=== PATIENT | female | born 1980 | race Caucasian/White ===

== ENCOUNTER → 2017-07-24 15:02 | Outpatient (CLI) | payer MEDICAID, SELFPAY ==
--- NOTE | 2017-07-24 15:22 | XR_ITS ---
XR foot LT min 3V HISTORY: Clubfoot, pain the pain, prior surgery ORDERING PHYSICIAN: Zully Roque DPM PATIENT AGE: 37 years COMPARISON: None FINDINGS: Weightbearing views are performed. There is mild metatarsus varus with mild osteoarthritic change of the first metatarsophalangeal joint. There appears to be fusion of the first interphalangeal joint. There is mild flexion of the second through fifth toes as well.. No fracture or dislocation. No lytic or blastic change. IMPRESSION: Metatarsus varus with flexion of the second through fifth toes and apparent fusion of the first interphalangeal joint
--- NOTE | 2017-07-24 15:22 | XR_ITS ---
XR RIGHT ankle min 3V HISTORY: Clubfoot ORDERING PHYSICIAN: Zully Roque DPM PATIENT AGE: 37 years COMPARISON: None FINDINGS: Weightbearing views performed No fracture or dislocation. No lytic or blastic change. There is normal mineralization.. The joint spaces are well-preserved. No significant degenerative/arthritic changes. No erosive changes evident. IMPRESSION: Negative right ankle, no acute finding
--- NOTE | 2017-07-24 15:22 | XR_ITS ---
XR ankle LT min 3V HISTORY: Clubfoot, prior surgery ORDERING PHYSICIAN: Zully Roque DPM PATIENT AGE: 37 years COMPARISON: None FINDINGS: No fracture or dislocation. No lytic or blastic change. There is normal mineralization.. The joint spaces are well-preserved. No significant degenerative/arthritic changes. No erosive changes evident. IMPRESSION: Negative ankle, no acute finding
--- NOTE | 2017-07-24 15:22 | XR_ITS ---
XR LT foot min 3V HISTORY: Clubfoot ORDERING PHYSICIAN: Zully Roque DPM PATIENT AGE: 37 years COMPARISON: None FINDINGS: Weightbearing views are performed. There is metatarsus varus with flexion deformity of digits 2 through 5. Hypertrophic changes are present at the talonavicular joint and at the calcaneal cuboid joint with bony bridging along the dorsal aspect of the calcaneal cuboid joint. Osteophyte is present also at the first metatarsal tarsal joint. There is pes cavus. No fracture or dislocation. No lytic or blastic change. IMPRESSION: Metatarsus varus with pes cavus and flexion deformity of digits 2 through 5
== END ==
PROVIDERS: PCP Emergency Medicine; Visit Provider Podiatrist
DX: Q66.7 Congenital pes cavus
CPT/HCPCS: 73610; 73630

== ENCOUNTER → 2017-08-25 13:48 | Outpatient (POV) | payer MEDICAID, SELFPAY | PROVIDERS: Family Provider Emergency Medicine; PCP Emergency Medicine; Visit Provider Specialist | DX: M79.671 Pain in right foot (principal); M79.672 Pain in left foot; M21.40 Flat foot [pes planus] (acquired), unspecified foot | CPT/HCPCS: 95886; 95909 ==

== ENCOUNTER → 2017-09-12 10:58 | Outpatient (POV) | payer MEDICAID, SELFPAY | PROVIDERS: Family Provider Emergency Medicine; PCP Emergency Medicine; Visit Provider Podiatrist | DX: Z00.00 Encounter for general adult medical examination without abnormal findings (principal) ==

== ENCOUNTER → 2017-10-10 10:17 | Outpatient (POV) | payer MEDICAID, SELFPAY | PROVIDERS: Family Provider Emergency Medicine; PCP Emergency Medicine; Visit Provider Podiatrist | DX: Z00.00 Encounter for general adult medical examination without abnormal findings (principal) ==

== ENCOUNTER → 2017-10-31 11:34 | Outpatient (POV) | payer MEDICAID, SELFPAY | PROVIDERS: Visit Provider Podiatrist | DX: Z00.00 Encounter for general adult medical examination without abnormal findings (principal) ==

== ENCOUNTER → 2018-02-06 11:57 | Outpatient (REF) | payer MEDICAID, SELFPAY | LOC: LAB 11:57 | PROVIDERS: Visit Provider Nurse Practitioner Family | DX: R30.0 Dysuria (principal) | CPT/HCPCS: 87086 ==

== ENCOUNTER → 2019-08-18 13:59 | Outpatient (CLI) | payer OTHER, SELFPAY ==
--- NOTE | 2019-08-18 14:00 | US_ITS ---
PROCEDURE: US THYROID CLINICAL INDICATION: enlarged Enlarged thyroid gland, difficulty swallowing COMPARISON: No exams were available for comparison FINDINGS: Right lobe: 3.7 x 1.3 x 1.6 cm with homogeneous echogenicity. Left lobe: 3 x 1.0 x 1.3 cm with homogeneous echogenicity Isthmus: Unremarkable Additional findings: No nodules apparent IMPRESSION: Unremarkable thyroid ultrasound Dictated by: Josue Gonzalez MD 08/18/2019 16:43 Electronically signed by Josue Gonzalez MD in [place] 08/18/2019 16:43
== END ==
PROVIDERS: PCP Emergency Medicine; Visit Provider Nurse Practitioner Family
DX: R13.10 Dysphagia, unspecified (principal)
CPT/HCPCS: 76536

== ENCOUNTER → 2019-08-23 11:04 | Outpatient (CLI) | payer OTHER, SELFPAY ==
[2019-08-23 11:31] LABS: Basophils % 0.7 % (0.1-2.0); Eosinophils # 0.1 K/mm3 (0.0-0.4); Eosinophils % 1.5 % (0.1-12.0); Hemoglobin 9.9 g/dL (12.2-16.2); Lymphocytes # 0.9 K/mm3 (0.7-4.5); Lymphocytes % 16.2 % (10-50); Mean Corpuscular HGB Conc 29.9 g/dL (31.8-35.4); Mean Corpuscular Hemoglobin 22.5 pg (27.0-31.2); Mean Corpuscular Volume 75.1 fl (81-99); Monocytes # 0.2 K/mm3 (0.1-1.0); Monocytes % 4.2 % (1.7-9.3); Neutrophils # 4.5 K/mm3 (1.8-7.8); Neutrophils % 77.4 % (37.0-80.0); Platelet Count 251 K/mm3 (142-424); Red Cell Distribution Width 14.8 % (11.5-17.5); White Blood Count 5.8 K/mm3 (4.8-10.8)
[2019-08-23 12:46] LABS: Alanine Aminotransferase 17 U/L (12-78); Albumin Level 3.5 gm/dL (3.4-5.0); Albumin/Globulin Ratio 1.3 (1.1-1.8); Alkaline Phosphatase 67 U/L (46-116); Anion Gap 14.7 mEq/L (5-15); Aspartate Amino Transferase 15 U/L (15-37); Bilirubin,Total 0.3 mg/dL (0.2-1.0); Blood Urea Nitrogen 11 mg/dL (7-18); Calcium 8.4 mg/dL (8.5-10.1); Carbon Dioxide 24 mmol/L (21.0-32.0); Chloride 107 mmol/L (98-107); Chol/HDL Ratio 3.5 (1-3.5); Cholesterol 142 mg/dL (140-200); Creatinine,Serum 0.61 mg/dL (0.55-1.02); Estimated Glomerular Filt Rate 109 ml/min (>60); GFR (African American) 131 ML/MIN (>60); Globulin 2.8 gm/dl (1.3-3.2); Glucose 89 mg/dL (74-106); HDL Cholesterol 41 mg/dL (29-89); LDL Cholesterol 72 mg/dL (0-130); Potassium 3.7 mmoL/L (3.5-5.1); Sodium 142 mmol/L (136-145); T4 (Thyroxine) 7.6 ug/dl (4.7-13.3); Total Protein,Serum 6.3 gm/dL (6.4-8.2); Triglycerides 147 mg/dL (30-200); VLDL Cholesterol 29 mg/dL (0-40)
[2019-08-24 05:34] LABS: Vitamin D 25 Hydroxy 23.8 ng/mL (30.0-100.0)
== END ==
PROVIDERS: Visit Provider Nurse Practitioner Family
DX: R59.9 Enlarged lymph nodes, unspecified (principal); R53.83 Other fatigue; E66.9 Obesity, unspecified; E55.9 Vitamin D deficiency, unspecified
CPT/HCPCS: 36415; 80053; 80061; 82652; 84436; 84443; 85025

== ENCOUNTER → 2019-08-30 12:45 | Outpatient (CLI) | payer OTHER, SELFPAY ==
[2019-08-30 12:47] LABS: MANUAL DIFFERENTIAL MANUAL DIFFERENTIAL (MANUAL DIFF)
[2019-08-30 13:04] LABS: Basophils # 0.1 K/mm3 (0-0.2); Basophils % 0.7 % (0.1-2.0); Eosinophils # 0.1 K/mm3 (0.0-0.4); Eosinophils % 1.7 % (0.1-12.0); Hematocrit 33.6 % (37.0-47.0); Hemoglobin 10.4 g/dL (12.2-16.2); Lymphocytes # 1.4 K/mm3 (0.7-4.5); Lymphocytes % 19.5 % (10-50); Mean Corpuscular HGB Conc 30.9 g/dL (31.8-35.4); Mean Corpuscular Hemoglobin 22.7 pg (27.0-31.2); Mean Corpuscular Volume 73.3 fl (81-99); Monocytes # 0.3 K/mm3 (0.1-1.0); Monocytes % 3.4 % (1.7-9.3); Neutrophils # 5.4 K/mm3 (1.8-7.8); Neutrophils % 74.6 % (37.0-80.0); Platelet Count 290 K/mm3 (142-424); Red Blood Count 4.58 M/mm3 (4.20-5.40); Red Cell Distribution Width 14.6 % (11.5-17.5); White Blood Count 7.2 K/mm3 (4.8-10.8)
[2019-08-30 19:31] LABS: Eosinophils % 2 % (0-3); Lymphocytes % 17 % (10-50); Monocytes % 4 % (2-9); Neutrophils % 77 % (42-76); Total Cells Counted 100
[2019-08-30 19:32] LABS: Anisocytosis 1+; Hypochromasia 1+; Microcytosis 1+
[2019-08-30 19:33] LABS: Platelet Estimate Slight Increase
== END ==
PROVIDERS: Visit Provider Nurse Practitioner Family
DX: D64.9 Anemia, unspecified (principal)
CPT/HCPCS: 36415; 85007; 85014; 85018; 85048; 85049

== ENCOUNTER → 2019-09-23 11:16 | Outpatient (CLI) | payer OTHER, SELFPAY ==
[2019-09-23 11:54] LABS: Basophils # 0.1 K/mm3 (0-0.2); Basophils % 0.7 % (0.1-2.0); Eosinophils # 0.2 K/mm3 (0.0-0.4); Eosinophils % 2.6 % (0.1-12.0); Hematocrit 33.5 % (37.0-47.0); Hemoglobin 10.2 g/dL (12.2-16.2); Lymphocytes # 1.5 K/mm3 (0.7-4.5); Lymphocytes % 19.7 % (10-50); Mean Corpuscular HGB Conc 30.4 g/dL (31.8-35.4); Mean Corpuscular Volume 72.3 fl (81-99); Mean Platelet Volume 8.2 fl (7.4-10.4); Monocytes # 0.3 K/mm3 (0.1-1.0); Monocytes % 4.1 % (1.7-9.3); Neutrophils # 5.5 K/mm3 (1.8-7.8); Neutrophils % 72.8 % (37.0-80.0); Platelet Count 231 K/mm3 (142-424); Red Blood Count 4.63 M/mm3 (4.20-5.40); Red Cell Distribution Width 15.5 % (11.5-17.5); White Blood Count 7.5 K/mm3 (4.8-10.8)
[2019-09-23 15:40] LABS: Ferritin 5.34 ng/ml (6.24-137)
[2019-09-24 04:35] LABS: Iron 23 ug/dL (27-159); UIBC 366 ug/dL (131-425)
[2019-09-24 10:32] LABS: Haptoglobin 215 mg/dL (33-278); Iron Saturation 6 % (15-55)
== END ==
PROVIDERS: Visit Provider Internal Medicine Medical Oncology
DX: D50.9 Iron deficiency anemia, unspecified (principal)
CPT/HCPCS: 36415; 82728; 83010; 83540; 83550; 85025

== ENCOUNTER 2019-10-06 13:12 | Outpatient (CLI) | payer OTHER, SELFPAY ==
[2019-10-06 13:30] VITALS: BP 117/79; PULSE 82; RESP 18; TEMP 36.6; O2SAT 98
[2019-10-06 13:55] VITALS: BP 114/72; PULSE 73; RESP 16; TEMP 36.6; O2SAT 99
[2019-10-06 14:27] VITALS: BP 124/75; PULSE 78; RESP 18; TEMP 36.6; O2SAT 99
== END 2019-10-06 14:32 | disposition home or self-care (01) ==
LOC: INF 13:12
PROVIDERS: Visit Provider Internal Medicine Medical Oncology
DX: D50.8 Other iron deficiency anemias (principal)
CPT/HCPCS: 96365; J1439

== ENCOUNTER 2019-10-13 13:05 | Outpatient (CLI) | payer OTHER, SELFPAY ==
[2019-10-13 13:25] VITALS: BP 129/84; PULSE 96; RESP 18; O2SAT 97
[2019-10-13 14:02] VITALS: BP 120/76; PULSE 87; RESP 20; O2SAT 100
== END 2019-10-13 14:02 | disposition home or self-care (01) ==
LOC: INF 13:14
PROVIDERS: Visit Provider Internal Medicine Medical Oncology
DX: D50.9 Iron deficiency anemia, unspecified (principal)
CPT/HCPCS: 96365; J1439

== ENCOUNTER → 2020-01-31 14:53 | Outpatient (CLI) | payer OTHER, SELFPAY ==
[2020-01-31 15:22] LABS: Basophils % 0.5 % (0.1-2.0); Eosinophils # 0.1 K/mm3 (0.0-0.4); Eosinophils % 2.2 % (0.1-12.0); Hematocrit 41.5 % (37.0-47.0); Hemoglobin 13.5 g/dL (12.2-16.2); Lymphocytes # 1.1 K/mm3 (0.7-4.5); Lymphocytes % 18.6 % (10-50); Mean Corpuscular HGB Conc 32.6 g/dL (31.8-35.4); Mean Corpuscular Hemoglobin 29.7 pg (27.0-31.2); Mean Corpuscular Volume 90.9 fl (81-99); Mean Platelet Volume 7.7 fl (7.4-10.4); Monocytes # 0.2 K/mm3 (0.1-1.0); Monocytes % 3.8 % (1.7-9.3); Neutrophils # 4.6 K/mm3 (1.8-7.8); Neutrophils % 74.9 % (37.0-80.0); Platelet Count 195 K/mm3 (142-424); Red Blood Count 4.57 M/mm3 (4.20-5.40); Red Cell Distribution Width 13.6 % (11.5-17.5); White Blood Count 6.1 K/mm3 (4.8-10.8)
[2020-01-31 16:18] LABS: Iron 89 ug/dL (37-170)
[2020-01-31 16:26] LABS: Total Iron Binding Capacity 322 ug/dL (265-497)
[2020-01-31 18:49] LABS: Chloride 102 mmol/L (98-107); Sodium 138 mmol/L (136-145)
[2020-01-31 18:50] LABS: Potassium 4.3 mmoL/L (3.5-5.1)
[2020-01-31 18:53] LABS: Anion Gap 15.3 mEq/L (5-15); Blood Urea Nitrogen 14 mg/dl (7-17); Calcium 9.2 mg/dl (8.4-10.2); Carbon Dioxide 25 mmol/L (22.0-30.0); Estimated Glomerular Filt Rate 137 ml/min (>60); GFR (African American) 165 ML/MIN (>60); Glucose 81 mg/dl (74-100)
[2020-01-31 19:09] LABS: T4 (Thyroxine) 8.9 ug/dl (5.53-11.0)
[2020-01-31 19:23] LABS: Thyroid Stimulating Hormone 1.53 uIU/mL (0.465-4.68)
[2020-01-31 20:23] LABS: Ferritin 60.6 ng/ml (6.24-137)
[2020-02-02 15:27] LABS: Haptoglobin 179 mg/dL (33-278)
== END ==
PROVIDERS: Emergency Medicine; Visit Provider Internal Medicine Medical Oncology
DX: R22.43 Localized swelling, mass and lump, lower limb, bilateral (principal)
CPT/HCPCS: 36415; 80048; 82728; 83010; 83540; 83550; 84436; 84443; 85025

== ENCOUNTER → 2020-05-23 12:39 | Outpatient (CLI) | payer OTHER, SELFPAY | PROVIDERS: Visit Provider Physician Assistant | DX: T14.8XXA Other injury of unspecified body region, initial encounter (principal) | CPT/HCPCS: 87070; 87205 ==

== ENCOUNTER → 2020-06-27 15:26 | Outpatient (CLI) | payer OTHER, SELFPAY | PROVIDERS: Visit Provider Physician Assistant | DX: R30.0 Dysuria (principal) | CPT/HCPCS: 87086; 87088; 87186 ==

== ENCOUNTER → 2020-07-31 12:56 | Outpatient (CLI) | payer OTHER, SELFPAY ==
[2020-07-31 14:23] LABS: Basophils % 0.5 % (0.1-2.0); Eosinophils # 0.2 K/mm3 (0.0-0.4); Eosinophils % 2.5 % (0.1-12.0); Hematocrit 43.4 % (37.0-47.0); Hemoglobin 13.9 g/dL (12.2-16.2); Lymphocytes # 1.1 K/mm3 (0.7-4.5); Lymphocytes % 19.1 % (10-50); Mean Corpuscular HGB Conc 32.1 g/dL (31.8-35.4); Mean Corpuscular Hemoglobin 28.8 pg (27.0-31.2); Mean Corpuscular Volume 89.7 fl (81-99); Mean Platelet Volume 7.9 fl (7.4-10.4); Monocytes # 0.3 K/mm3 (0.1-1.0); Monocytes % 4.4 % (1.7-9.3); Neutrophils # 4.3 K/mm3 (1.8-7.8); Neutrophils % 73.4 % (37.0-80.0); Platelet Count 230 K/mm3 (142-424); Red Blood Count 4.83 M/mm3 (4.20-5.40); Red Cell Distribution Width 13.3 % (11.5-17.5); White Blood Count 5.9 K/mm3 (4.8-10.8)
[2020-07-31 15:28] LABS: Iron 61 ug/dL (37-170)
[2020-07-31 15:37] LABS: Total Iron Binding Capacity 332 ug/dL (265-497)
[2020-07-31 16:03] LABS: Ferritin 16.7 ng/ml (6.24-137)
== END ==
PROVIDERS: Visit Provider Internal Medicine Medical Oncology
DX: D64.9 Anemia, unspecified (principal)
CPT/HCPCS: 36415; 82728; 83540; 83550; 85025

== ENCOUNTER → 2020-08-03 14:24 | Outpatient (CLI) | payer OTHER, SELFPAY ==
[2020-08-05 10:49] LABS: Hep A Ab, IgM Negative (Negative); Hepatitis B Core Antibody IgM Negative (Negative); Hepatitis B Surface Antigen Negative (Negative)
[2020-08-05 19:38] LABS: HSV 1 IgG, Type Spec <0.91 index (0.00-0.90); Hepatitis C Antibody <0.1 s/co ratio (0.0-0.9); Rapid Plasma Reagin Ab Titer Non Reactive (NonRea<1:1)
[2020-08-05 19:39] LABS: HIV Screen 4th Generation wRfx Non Reactive (Non Reactive)
[2020-08-09 10:35] LABS: Neisseria gonorrhoeae, NAA Negative (Negative)
== END ==
PROVIDERS: Visit Provider Physician Assistant
DX: Z20.2 Contact with and (suspected) exposure to infections with a predominantly sexual mode of transmission (principal)
CPT/HCPCS: 80074; 86592; 86695; 86703; 86790; 87491; 87591; G0432

== ENCOUNTER → 2020-08-21 15:57 | Outpatient (CLI) | payer OTHER, SELFPAY ==
[2020-08-24 10:16] LABS: Neisseria gonorrhoeae, NAA Negative (Negative)
== END ==
PROVIDERS: Visit Provider Obstetrics & Gynecology
DX: Z20.2 Contact with and (suspected) exposure to infections with a predominantly sexual mode of transmission (principal)
CPT/HCPCS: 87491; 87591

== ENCOUNTER 2021-01-31 08:31 | Outpatient (RCR) | payer OTHER, SELFPAY ==
--- NOTE | 2021-01-31 09:18 | [facility].PTOPEV ---
PT Outpatient Evaluation Rehab PT Outpatient Evaluation Start: 01/31/21 08:38 Freq: Status: Active Protocol: Document 01/31/21 09:03 PHORNE (Rec: 01/31/21 09:17 PHORNE [id number]) Electronically Signed By Jonathan Rodriguez, PT 01/31/21 09:03 Outpatient Therapy Subjective History Subjective History Pt is 40 yowf who presents with c/o intermittent vertigo x ~ 2-3 wks with insidious onset of symptoms. Pt seems to have difficulty with providing hx and is unclear with all some of her answers during subjective interview. She states, Sometimes I'm spinning and sometimes I'm lightheaded. She reports vertigo is positional, but can happen intermittently when supine and when rolling in bed to either direction. She reports onset of symptoms is quick and sometimes is relieved quickly, while other times it takes 10-15 mins to resolve. She reports no problems while riding in a car or walking. She reports recent problems with B LE edema and HTN, but reports she only takes her medicine for these conditions ometimes and in a haphazard fashion. She states, They gave me the fluid pills and I'm supposed to take 1/2 of one every other day, but I don't do that unless I feel swollen. I took a whole one every day for a week and that didn't help and then I quit taking it and that didn't help either. Pt appears at least moderately anxious during initial evaluation, but reports no hx of anxiety. She reports PMH of HTN, Muscular Dystrophy, and Scoliosis. She showed no abnormalities with visual accuity and occulomotor testing and no nystagmus with
== END 2021-01-31 08:35 | disposition home or self-care (01) ==
LOC: PT 08:31
PROVIDERS: PCP Emergency Medicine; Visit Provider Nurse Practitioner Family
DX: R42 Dizziness and giddiness (principal)
CPT/HCPCS: 97163

== ENCOUNTER → 2021-02-05 13:28 | Outpatient (CLI) | payer OTHER, SELFPAY ==
[2021-02-05 14:21] LABS: Basophils # 0.1 K/mm3 (0-0.2); Basophils % 0.6 % (0.1-2.0); Eosinophils # 0.2 K/mm3 (0.0-0.4); Eosinophils % 1.9 % (0.1-12.0); Hematocrit 34.4 % (37.0-47.0); Hemoglobin 11.6 g/dL (12.2-16.2); Lymphocytes # 1.5 K/mm3 (0.7-4.5); Lymphocytes % 17.5 % (10-50); Mean Corpuscular HGB Conc 33.7 g/dL (31.8-35.4); Mean Corpuscular Hemoglobin 25.9 pg (27.0-31.2); Mean Corpuscular Volume 76.9 fl (81-99); Mean Platelet Volume 7.8 fl (7.4-10.4); Monocytes # 0.3 K/mm3 (0.1-1.0); Monocytes % 4.1 % (1.7-9.3); Neutrophils # 6.3 K/mm3 (1.8-7.8); Neutrophils % 75.9 % (37.0-80.0); Platelet Count 240 K/mm3 (142-424); Red Blood Count 4.47 M/mm3 (4.20-5.40); Red Cell Distribution Width 13.4 % (11.5-17.5); White Blood Count 8.3 K/mm3 (4.8-10.8)
[2021-02-05 14:49] LABS: Chloride 108 mmol/L (98-107); Potassium 4.2 mmoL/L (3.5-5.1); Sodium 141 mmol/L (136-145)
[2021-02-05 14:52] LABS: Iron 35 ug/dL (37-170)
[2021-02-05 14:52] LABS: Anion Gap 12.2 mEq/L (5-15); Blood Urea Nitrogen 14 mg/dl (7-17); Calcium 8.8 mg/dl (8.4-10.2); Carbon Dioxide 25 mmol/L (22.0-30.0); Estimated Glomerular Filt Rate 110 ml/min (>60); GFR (African American) 133 ML/MIN (>60); Glucose 88 mg/dl (74-100)
[2021-02-05 15:02] LABS: Total Iron Binding Capacity 397 ug/dL (265-497)
[2021-02-05 15:29] LABS: Ferritin 6.61 ng/ml (6.24-137)
== END ==
PROVIDERS: Nurse Practitioner Family; Visit Provider Internal Medicine Medical Oncology
DX: R60.9 Edema, unspecified (principal)
CPT/HCPCS: 36415; 80048; 82728; 83540; 83550; 85025

== ENCOUNTER 2021-02-12 12:53 | Outpatient (CLI) | payer OTHER, SELFPAY ==
[2021-02-12 13:14] VITALS: BP 112/73; PULSE 83; RESP 18; TEMP 36.4; O2SAT 100
[2021-02-12 13:51] VITALS: BP 125/71; PULSE 76; RESP 18
== END 2021-02-12 13:51 | disposition home or self-care (01) ==
LOC: INF 12:57
PROVIDERS: Visit Provider Internal Medicine Medical Oncology
DX: D50.9 Iron deficiency anemia, unspecified (principal)
CPT/HCPCS: 96365; J1439

== ENCOUNTER 2021-02-19 12:43 | Outpatient (CLI) | payer OTHER, SELFPAY ==
[2021-02-19 12:46] VITALS: BP 117/74; PULSE 90; RESP 18; O2SAT 99
[2021-02-19 13:30] VITALS: BP 122/84; PULSE 87; RESP 18
== END 2021-02-19 13:30 | disposition home or self-care (01) ==
LOC: INF 12:43
PROVIDERS: Visit Provider Internal Medicine Medical Oncology
DX: D50.9 Iron deficiency anemia, unspecified (principal)
CPT/HCPCS: 96365; J1439

== ENCOUNTER → 2021-10-23 11:01 | Outpatient (CLI) | payer OTHER, SELFPAY ==
[2021-10-23 11:42] LABS: Basophils % 0.5 % (0.1-2.0); Eosinophils # 0.2 K/mm3 (0.0-0.4); Eosinophils % 1.7 % (0.1-12.0); Hematocrit 40.4 % (37.0-47.0); Hemoglobin 13.5 g/dL (12.2-16.2); Lymphocytes # 1.1 K/mm3 (0.7-4.5); Lymphocytes % 11.2 % (10-50); Mean Corpuscular HGB Conc 33.4 g/dL (31.8-35.4); Mean Corpuscular Hemoglobin 30.1 pg (27.0-31.2); Mean Platelet Volume 8.7 fl (7.4-10.4); Monocytes # 0.3 K/mm3 (0.1-1.0); Monocytes % 3.4 % (1.7-9.3); Neutrophils % 83.3 % (37.0-80.0); Platelet Count 229 K/mm3 (142-424); Red Blood Count 4.49 M/mm3 (4.20-5.40); White Blood Count 9.6 K/mm3 (4.8-10.8)
[2021-10-23 12:06] LABS: Chloride 107 mmol/L (98-107); Potassium 4.1 mmoL/L (3.5-5.1); Sodium 139 mmol/L (136-145)
[2021-10-23 12:09] LABS: Alanine Aminotransferase 16 U/L (12-78); Albumin Level 3.8 g/dl (3.5-5.0); Albumin/Globulin Ratio 1.4 (1.1-1.8); Alkaline Phosphatase 88 U/L (38-126); Anion Gap 10.1 mEq/L (5-15); Aspartate Amino Transferase 22 U/L (14-36); Bilirubin,Total 0.7 mg/dl (0.2-1.3); Blood Urea Nitrogen 16 mg/dl (7-17); Calcium 8.6 mg/dl (8.4-10.2); Carbon Dioxide 26 mmol/L (22.0-30.0); Estimated Glomerular Filt Rate 135 ml/min (>60); GFR (African American) 164 ML/MIN (>60); Globulin 2.7 g/dL (1.3-3.2); Glucose 94 mg/dl (74-100); Iron 47 ug/dL (37-170); Total Protein,Serum 6.5 g/dl (6.3-8.2)
[2021-10-23 12:19] LABS: Total Iron Binding Capacity 333 ug/dL (265-497)
[2021-10-23 12:45] LABS: Ferritin 39.2 ng/ml (6.24-137)
== END ==
PROVIDERS: PCP Emergency Medicine; Visit Provider Internal Medicine Medical Oncology
DX: D50.9 Iron deficiency anemia, unspecified (principal)
CPT/HCPCS: 36415; 80053; 82728; 83540; 83550; 85025

== ENCOUNTER → 2022-04-29 14:16 | Outpatient (CLI) | payer OTHER, SELFPAY ==
[2022-04-29 15:11] LABS: Basophils # 0.1 K/mm3 (0-0.2); Basophils % 0.8 % (0.1-2.0); Eosinophils # 0.3 K/mm3 (0.0-0.4); Eosinophils % 3.2 % (0.1-12.0); Hematocrit 38.6 % (37.0-47.0); Hemoglobin 12.1 g/dL (12.2-16.2); Lymphocytes # 1.6 K/mm3 (0.7-4.5); Lymphocytes % 19.7 % (10-50); Mean Corpuscular HGB Conc 31.3 g/dL (31.8-35.4); Mean Corpuscular Hemoglobin 25.2 pg (27.0-31.2); Mean Corpuscular Volume 80.4 fl (81-99); Monocytes # 0.4 K/mm3 (0.1-1.0); Monocytes % 4.8 % (1.7-9.3); Neutrophils # 5.7 K/mm3 (1.8-7.8); Neutrophils % 71.5 % (37.0-80.0); Platelet Count 272 K/mm3 (142-424); Red Cell Distribution Width 14.5 % (11.5-17.5); White Blood Count 7.9 K/mm3 (4.8-10.8)
[2022-04-29 15:19] LABS: Iron 30 ug/dL (37-170)
[2022-04-29 15:29] LABS: Total Iron Binding Capacity 411 ug/dL (265-497)
== END ==
PROVIDERS: PCP Emergency Medicine; Visit Provider Internal Medicine Medical Oncology
DX: D50.9 Iron deficiency anemia, unspecified (principal)
CPT/HCPCS: 36415; 82728; 83540; 83550; 85025

== ENCOUNTER 2022-05-08 12:54 | Outpatient (CLI) | payer OTHER, SELFPAY ==
[2022-05-08 13:15] VITALS: BP 121/80; PULSE 82; RESP 18; O2SAT 98
[2022-05-08 13:53] VITALS: BP 120/84; PULSE 81; RESP 18
== END 2022-05-08 13:53 | disposition home or self-care (01) ==
LOC: INF 12:56
PROVIDERS: PCP Emergency Medicine; Visit Provider Internal Medicine Medical Oncology
DX: D50.8 Other iron deficiency anemias (principal)
CPT/HCPCS: 96365; J1439

== ENCOUNTER 2022-05-15 12:27 | Outpatient (CLI) | payer OTHER, SELFPAY ==
[2022-05-15 12:46] VITALS: BP 107/79; PULSE 73; RESP 18; O2SAT 100
[2022-05-15 13:22] VITALS: BP 114/81; PULSE 74; RESP 18
== END 2022-05-15 13:22 | disposition home or self-care (01) ==
LOC: INF 12:28
PROVIDERS: PCP Emergency Medicine; Visit Provider Internal Medicine Medical Oncology
DX: D50.8 Other iron deficiency anemias (principal)
CPT/HCPCS: 96365; J1439

== ENCOUNTER → 2022-05-28 13:00 | Outpatient (CLI) | payer OTHER, SELFPAY ==
[2022-05-28 16:29] LABS: Adenovirus,PCR Not Detected (NotDetected); Bordetella Pertussis Not Detected (NotDetected); Chlamydophila Pneumoniae, PCR Not Detected (NotDetected); Coronavirus 19, PCR Not Detected (NotDetected); Coronavirus 229E Not Detected (NotDetected); Coronavirus NL63 Not Detected (NotDetected); Coronavirus OC43 Not Detected (NotDetected); Coronovirus HKU1,PCR Not Detected (NotDetected); Human Metapneumovirus Not Detected (NotDetected); Influenza A, PCR Not Detected (NotDetected); Influenza AH1, 2009 Not Detected (NotDetected); Influenza AH1, PCR Not Detected (NotDetected); Influenza AH3,PCR Not Detected (NotDetected); Influenza B, PCR Not Detected (NotDetected); Mycoplasma Pneumoniae, PCR Not Detected (NotDetected); Parainfluenza 2, PCR Not Detected (NotDetected); Parainfluenza 3, PCR Not Detected (NotDetected); Parainfluenza 4, PCR Not Detected (NotDetected); Respiratory Syncytial Virus Not Detected (NotDetected); Rhinovirus/Enterovirus Not Detected (NotDetected)
[2022-05-29 08:51] LABS: Parainfluenza 1, PCR Detected (NotDetected)
== END ==
PROVIDERS: PCP Student in an Organized Health Care Education/Training Program; Visit Provider Student in an Organized Health Care Education/Training Program
DX: J02.9 Acute pharyngitis, unspecified (principal); J12.2 Parainfluenza virus pneumonia
CPT/HCPCS: 87581; 87632; 87798; C9803; U0003; U0005

== ENCOUNTER → 2022-11-06 12:39 | Outpatient (CLI) | payer OTHER, SELFPAY ==
[2022-11-06 13:22] LABS: Basophils # 0.1 K/mm3 (0-0.2); Basophils % 0.7 % (0.1-2.0); Eosinophils # 0.3 K/mm3 (0.0-0.4); Eosinophils % 4.1 % (0.1-12.0); Hematocrit 43.5 % (37.0-47.0); Lymphocytes # 1.3 K/mm3 (0.7-4.5); Lymphocytes % 18.2 % (10-50); Mean Corpuscular HGB Conc 32.3 g/dL (31.8-35.4); Mean Corpuscular Hemoglobin 29.5 pg (27.0-31.2); Mean Corpuscular Volume 91.3 fl (81-99); Mean Platelet Volume 7.8 fl (7.4-10.4); Monocytes # 0.3 K/mm3 (0.1-1.0); Monocytes % 4.6 % (1.7-9.3); Neutrophils # 5.1 K/mm3 (1.8-7.8); Neutrophils % 72.4 % (37.0-80.0); Platelet Count 222 K/mm3 (142-424); Red Blood Count 4.76 M/mm3 (4.20-5.40)
[2022-11-06 15:03] LABS: Alanine Aminotransferase 16 U/L (12-78); Albumin Level 4.1 g/dl (3.5-5.0); Albumin/Globulin Ratio 1.5 (1.1-1.8); Alkaline Phosphatase 91 U/L (38-126); Anion Gap 13.6 mEq/L (5-15); Aspartate Amino Transferase 22 U/L (14-36); Bilirubin,Total 0.4 mg/dl (0.2-1.3); Blood Urea Nitrogen 16 mg/dl (7-17); Calcium 8.9 mg/dl (8.4-10.2); Carbon Dioxide 24 mmol/L (22.0-30.0); Chloride 106 mmol/L (98-107); Estimated Glomerular Filt Rate 135 ml/min (>60); GFR (African American) 163 ML/MIN (>60); Globulin 2.7 g/dL (1.3-3.2); Glucose 101 mg/dl (74-100); Potassium 3.6 mmoL/L (3.5-5.1); Sodium 140 mmol/L (136-145); Total Protein,Serum 6.8 g/dl (6.3-8.2)
[2022-11-06 15:37] LABS: Ferritin 76.7 ng/ml (6.24-137); Iron 62 ug/dL (37-170); Total Iron Binding Capacity 289 ug/dL (265-497)
== END ==
PROVIDERS: PCP Emergency Medicine; Visit Provider Internal Medicine Medical Oncology
DX: D50.9 Iron deficiency anemia, unspecified (principal)
CPT/HCPCS: 36415; 80053; 82728; 83540; 83550; 85025

== ENCOUNTER → 2023-05-26 14:22 | Outpatient (CLI) | payer OTHER, SELFPAY ==
[2023-05-26 15:03] LABS: Basophils % 0.3 % (0.1-2.0); Eosinophils # 0.2 K/mm3 (0.0-0.4); Eosinophils % 2.2 % (0.1-12.0); Hematocrit 39.7 % (37.0-47.0); Hemoglobin 13.7 g/dL (12.2-16.2); Lymphocytes # 1.4 K/mm3 (0.7-4.5); Lymphocytes % 18.7 % (10-50); Mean Corpuscular HGB Conc 34.5 g/dL (31.8-35.4); Mean Corpuscular Hemoglobin 29.9 pg (27.0-31.2); Mean Corpuscular Volume 86.5 fl (81-99); Mean Platelet Volume 8.2 fl (7.4-10.4); Monocytes # 0.3 K/mm3 (0.1-1.0); Neutrophils # 5.8 K/mm3 (1.8-7.8); Neutrophils % 74.8 % (37.0-80.0); Platelet Count 218 K/mm3 (142-424); Red Blood Count 4.59 M/mm3 (4.20-5.40); Red Cell Distribution Width 13.4 % (11.5-17.5); White Blood Count 7.7 K/mm3 (4.8-10.8)
[2023-05-26 15:47] LABS: Iron 39 ug/dL (37-170)
[2023-05-26 15:57] LABS: Total Iron Binding Capacity 330 ug/dL (265-497)
[2023-05-26 16:24] LABS: Ferritin 29.7 ng/ml (6.24-137)
== END ==
PROVIDERS: PCP Emergency Medicine; Visit Provider Internal Medicine Medical Oncology
DX: D50.9 Iron deficiency anemia, unspecified (principal)
CPT/HCPCS: 36415; 82728; 83540; 83550; 85025

== ENCOUNTER 2024-01-21 09:25 | Outpatient (CLI) | payer OTHER, SELFPAY ==
[2024-01-21 20:29] LABS: Basophils # 0.1 K/mm3 (0-0.2); Basophils % 0.6 % (0.1-2.0); Eosinophils # 0.1 K/mm3 (0.0-0.4); Eosinophils % 1.6 % (0.1-12.0); Hemoglobin 12.5 g/dL (12.2-16.2); Lymphocytes # 1.1 K/mm3 (0.7-4.5); Lymphocytes % 13.2 % (10-50); Mean Corpuscular HGB Conc 32.8 g/dL (31.8-35.4); Mean Corpuscular Hemoglobin 27.3 pg (27.0-31.2); Mean Corpuscular Volume 83.1 fl (81-99); Mean Platelet Volume 8.7 fl (7.4-10.4); Monocytes # 0.3 K/mm3 (0.1-1.0); Monocytes % 3.9 % (1.7-9.3); Neutrophils # 6.8 K/mm3 (1.8-7.8); Neutrophils % 80.7 % (37.0-80.0); Platelet Count 225 K/mm3 (142-424); Red Blood Count 4.57 M/mm3 (4.20-5.40); Red Cell Distribution Width 14.3 % (11.5-17.5); White Blood Count 8.4 K/mm3 (4.8-10.8)
[2024-01-21 20:48] LABS: Alanine Aminotransferase 15 U/L (12-78); Albumin Level 4.3 g/dl (3.5-5.0); Albumin/Globulin Ratio 1.5 (1.1-1.8); Alkaline Phosphatase 85 U/L (38-126); Anion Gap 14.8 mEq/L (5-15); Aspartate Amino Transferase 25 U/L (14-36); Bilirubin,Total 0.6 mg/dl (0.2-1.3); Blood Urea Nitrogen 17 mg/dl (7-17); Calcium 9.3 mg/dl (8.4-10.2); Carbon Dioxide 24 mmol/L (22.0-30.0); Chloride 105 mmol/L (98-107); Chol/HDL Ratio 3.9 (1-3.5); Cholesterol 194 mg/dl (140-200); Estimated Glomerular Filt Rate 91 ml/min (>60); GFR (African American) 110 ML/MIN (>60); Globulin 2.9 g/dL (1.3-3.2); Glucose 116 mg/dl (74-100); HDL Cholesterol 50 mg/dl (40-60); Potassium 3.8 mmoL/L (3.5-5.1); Sodium 140 mmol/L (136-145); Total Protein,Serum 7.2 g/dl (6.3-8.2); Triglycerides 203 mg/dl (30-150); VLDL Cholesterol 41 mg/dL (0-40)
[2024-01-21 20:56] LABS: Total Iron Binding Capacity 358 ug/dL (265-497)
[2024-01-21 20:58] LABS: NT Pro Brain Natriuretic Pep. 99.8 pg/mL (0-125)
[2024-01-21 21:00] LABS: Direct LDL Cholesterol 94.67 mg/dL (100-129)
[2024-01-21 21:09] LABS: 25-OH Vitamin D, Total 54.8 ng/mL (30-100)
[2024-01-21 21:20] LABS: Thyroid Stimulating Hormone 0.57 uIU/mL (0.465-4.68)
[2024-01-21 21:27] LABS: Iron 66 ug/dL (37-170)
[2024-01-21 22:04] LABS: Ferritin 12.5 ng/ml (6.24-137)
[2024-01-22 10:24] LABS: HIV (1&2) Antibody Rapid NON REACTIVE
[2024-01-23 09:18] LABS: Hemoglobin A1C 6.3 % (4.0-6.0)
[2024-01-24 09:31] LABS: HCV Ab Non Reactive (Non Reactive)
== END 2024-01-21 23:59 | disposition home or self-care (01) ==
LOC: LAB.DROPOF 01-22 09:25
PROVIDERS: PCP Family Medicine; Visit Provider Family Medicine
DX: D50.9 Iron deficiency anemia, unspecified (principal); R60.9 Edema, unspecified; R73.09 Other abnormal glucose; E55.9 Vitamin D deficiency, unspecified
CPT/HCPCS: 80050; 80053; 80061; 82306; 82728; 82746; 83036; 83540; 83550; 83880; 84443; 85025

== ENCOUNTER 2024-02-05 14:31 | Outpatient (CLI) | payer OTHER, SELFPAY ==
[2024-02-07 10:23] LABS: Rapid Plasma Reagin Ab Titer Non Reactive titer (NonRea<1:1)
== END 2024-02-05 23:59 | disposition home or self-care (01) ==
LOC: LAB 14:33
PROVIDERS: PCP Nurse Practitioner Family; Visit Provider Obstetrics & Gynecology
DX: Z01.419 Encounter for gynecological examination (general) (routine) without abnormal findings (principal)
CPT/HCPCS: 36415; 86593

== ENCOUNTER 2024-03-11 13:40 | Outpatient (CLI) | payer OTHER, SELFPAY ==
--- NOTE | 2024-03-11 13:47 | XR_ITS ---
FINAL REPORT CLINICAL HISTORY: foot pain COMPARISON: None FINDINGS: LEFT FOOT Three views of the left foot demonstrate no acute fracture or dislocation. Hammertoe deformities are noted of the 2nd through 5th digits. The joint spaces are preserved. The soft tissues are unremarkable. IMPRESSION: Chronic changes without acute bony abnormality. Reviewed, Interpreted and Dictated by Husam Aponte MD Transcribed by Joanna Brannon Authenticated and [facility]
--- NOTE | 2024-03-11 13:47 | XR_ITS ---
FINAL REPORT CLINICAL HISTORY: foot pain COMPARISON: None FINDINGS: RIGHT FOOT 3 views of the right foot were obtained. There is no acute fracture or dislocation. There are hammertoe deformities of the 2nd through 5th digits. Moderate hypertrophic changes are noted at the 1st tarsometatarsal joint. Soft tissues are unremarkable. IMPRESSION: Degenerative/chronic changes without acute bony abnormality. Reviewed, Interpreted and Dictated by Husam Aponte MD Transcribed by Joanna Brannon Authenticated and [facility]
== END 2024-03-11 23:59 | disposition home or self-care (01) ==
LOC: RAD 13:43
PROVIDERS: PCP Nurse Practitioner Family; Visit Provider Nurse Practitioner Family
DX: M79.671 Pain in right foot (principal); M79.672 Pain in left foot
CPT/HCPCS: 73630

== ENCOUNTER 2024-04-12 10:05 | Outpatient (CLI) | payer OTHER, SELFPAY ==
[2024-04-12 20:41] LABS: HDL Cholesterol 47 mg/dl (40-60)
[2024-04-12 20:43] LABS: Chol/HDL Ratio 3.9 (1-3.5); Cholesterol 184 mg/dl (140-200); Triglycerides 151 mg/dl (30-150); VLDL Cholesterol 30 mg/dL (0-40)
[2024-04-12 21:55] LABS: Direct LDL Cholesterol 89.14 mg/dL (100-129)
[2024-04-12 23:24] LABS: Hemoglobin A1C 5.5 % (4.0-6.0)
== END 2024-04-12 23:59 | disposition home or self-care (01) ==
LOC: LAB.DROPOF 04-13 10:24
PROVIDERS: PCP Internal Medicine; Visit Provider Internal Medicine
DX: R73.03 Prediabetes (principal); E66.3 Overweight; Z68.30 Body mass index [BMI] 30.0-30.9, adult
CPT/HCPCS: 80061; 83036

== ENCOUNTER 2024-10-07 19:18 | Outpatient (CLI) | payer OTHER, SELFPAY ==
[2024-10-07 19:30] LABS: Coronavirus 19, PCR Not Detected (NotDetected); Influenza A, PCR Not Detected (NotDetected); Influenza B, PCR Not Detected (NotDetected)
== END 2024-10-07 23:59 | disposition home or self-care (01) ==
LOC: LAB.DROPOF 19:19
PROVIDERS: PCP Family Medicine; Visit Provider Family Medicine
DX: J02.9 Acute pharyngitis, unspecified (principal)
CPT/HCPCS: 87070; 87636